=== PATIENT | female | born 1970 | race Caucasian/White ===

== ENCOUNTER → 2023-08-18 06:21 | Day surgery (SDC) | payer OTHER, SELFPAY | LOC: GI 06:21 | PROVIDERS: ATTENDING PHYSICIAN Internal Medicine | DX: D12.0 Benign neoplasm of cecum (principal); K63.5 Polyp of colon; K57.30 Diverticulosis of large intestine without perforation or abscess without bleeding; K21.00 Gastro-esophageal reflux disease with esophagitis, without bleeding; D50.9 Iron deficiency anemia, unspecified; Z98.84 Bariatric surgery status; Z79.1 Long term (current) use of non-steroidal anti-inflammatories (NSAID); Z98.0 Intestinal bypass and anastomosis status | CPT/HCPCS: 45380; 43239; 88305; 88342 ==

== ENCOUNTER → 2024-08-16 09:45 | Outpatient (REF) | payer OTHER, SELFPAY | LOC: WDC 09:45 | PROVIDERS: ATTENDING PHYSICIAN Family Medicine | DX: N63.20 Unspecified lump in the left breast, unspecified quadrant (principal); N63.21 Unspecified lump in the left breast, upper outer quadrant | CPT/HCPCS: 76642 ==

== ENCOUNTER → 2024-08-29 07:06 | Outpatient (REF) | payer OTHER, SELFPAY ==
--- NOTE | 2024-08-29 08:54 | OID.BR.INTR ---
YAHAIRAD Breast Navigator - Initial
- -
Date of Contact: 08/29/24
Met with patient. Patient given written information on navigator services available at [facility]. Will follow up as needed per protocol.
== END ==
LOC: WDC 07:06
PROVIDERS: ATTENDING PHYSICIAN Family Medicine
DX: N63.22 Unspecified lump in the left breast, upper inner quadrant (principal)
CPT/HCPCS: 88305; 19083; A4648